=== PATIENT | female | born 1985 | race Caucasian/White ===

== ENCOUNTER 2025-10-19 00:32 | Emergency (ER) | payer SELFPAY ==
[2025-10-19 01:07] LABS: #Basophils 0.03 10x3/uL (0.0-0.2); #Eosinophils 0.08 10x3/uL (0.0-0.5); #Monocytes 0.51 10x3/uL (0.0-1.1); #Neutrophils 4.76 10x3/uL (1.5-8.4); %Basophils 0.4 % (0.0-2.0); %Eosinophils 1.2 % (0.0-6.0); %Lymphocytes 21.4 % (18.0-47.0); %Monocytes 7.4 % (0.0-10.0); %Neutrophils 69.5 % (40.0-75.0); Hematocrit 35.1 % (34.9-44.5); Hemoglobin 12.3 g/dL (12.0-15.5); Mean Corpuscular Hemoglobin 32.6 pg (27.0-33.0); Mean Corpuscular Volume 93.1 fL (81.6-98.3); Platelet Count 231 10x3/uL (150-450); Red Blood Cell (RBC) Count 3.77 10x6/uL (3.90-5.03); White Blood Cell (WBC) Count 6.86 10x3/uL (3.5-10.5)
[2025-10-19 01:16] LABS: BHCG - Serum Negative (NEGATIVE); Cocaine Metabolite Screen Negative (Negative); Pregs Control Background? CLEAR/WHITE (CLR/WHITE); Pregs Control Bar Appear? YES (CONTROL BAR); THC/Cannabinoid Screen PRELIM POSITIVE (Negative); Tricyclic Screen Negative (Negative)
[2025-10-19 01:21] LABS: Acetaminophen Less than 10 mcg/mL (Less than 10); Salicylate Less than 8.0 mg/dL (Less than 8.0)
[2025-10-19 01:28] LABS: ALT (SGPT) 108 U/L (Less than 34); AST (SGOT) 188 U/L (11-34); Albumin 3.9 g/dL (3.1-4.5); Alkaline Phosphatase 48 U/L (40-110); Anion Gap 17 mmol/L (10-20); BUN (Urea Nitrogen) 17 mg/dL (7.0-18.7); Bilirubin, Total 0.1 mg/dL (0.3-1.2); Calc. Creatinine Clearance 0 mL/min (70-130); Calcium 8.8 mg/dL (7.8-10.44); Carbon Dioxide 24 mmol/L (22-29); Chloride 105 mmol/L (98-107); Globulin 2.4 g/dL (2.4-3.5); Glucose 114 mg/dL (70-105); Potassium 2.8 mmol/L (3.5-5.1); Sodium 143 mmol/L (136-145)
[2025-10-19] MEDS ORDERED: Ondansetron PF 4 MG/2 ML Vial ONE (01:36)
[2025-10-19] MEDS ORDERED: Famotidine/PF 20 mg/2ml Vial ONE (01:36)
[2025-10-19 04:37] LABS: Glucose, Urine (Dipstick) Normal (Negative); Leukocyte 100 (Negative); Protein, Urine (Dipstick) 15 mg/dl (Neg-Trace); Specific Gravity, Urine 1.005 (1.005-1.030)
[2025-10-19 04:40] LABS: Bacteria/HPF None Seen HPF (None Seen); CAUTI Indications for Culture Alt mental st,lethar; RBC/HPF 0-3 HPF (0-3)
[2025-10-19 04:41] LABS: Urine Culture Reflex No No
[2025-10-19] MEDS ORDERED: cefTRIAXone (ROCEPHIN) 1 GM VIAL ONE (05:38)
== END 2025-10-19 06:34 | disposition home or self-care (01) ==
LOC: CSHERS 00:32
DX: F10.129 Alcohol abuse with intoxication, unspecified (principal); E86.0 Dehydration; N39.0 Urinary tract infection, site not specified; E87.20 Acidosis, unspecified
CPT/HCPCS: 36415; 80053; 80306; 80307; 81001; 83605; 84703; 85025; 87040; 96361; 96374; 96375; J0696; J1308; J2405